=== PATIENT | male | born 1985 | race Caucasian/White ===

== ENCOUNTER 2017-05-27 15:58 | Emergency (ER) | END 2017-05-27 17:05 | disposition home or self-care (01) ==

== ENCOUNTER 2017-12-20 07:50 | Emergency (ER) | END 2017-12-20 09:16 | disposition home or self-care (01) ==

== ENCOUNTER 2017-12-22 11:51 | Emergency (ER) | END 2017-12-22 14:12 | disposition home or self-care (01) ==

== ENCOUNTER → 2018-07-12 | Outpatient (CLI) | payer BC ==
[~2018-07-12] MED LIST: CALC300T4 PO; FAMO-96 PO; ONDA4TAB14 PO; PANT40TA3 PO
== END | disposition home or self-care (01) ==
LOC: LAB 08:11
PROVIDERS: ATTEND Internal Medicine
DX: Z01.84 Encounter for antibody response examination (principal); D64.9 Anemia, unspecified
CPT/HCPCS: 80053; 85025; 86480; 86706; 86735; 86762; 86765; 86787

== ENCOUNTER → 2018-08-22 | Outpatient (CLI) | payer BC | END | disposition home or self-care (01) | LOC: LAB 16:44 | PROVIDERS: ATTEND Internal Medicine | DX: N39.0 Urinary tract infection, site not specified (principal); D64.9 Anemia, unspecified | CPT/HCPCS: 81001; 85025; 86592 ==

== ENCOUNTER → 2018-08-25 | Outpatient (CLI) | payer BC | END | disposition home or self-care (01) | LOC: LAB 16:00 | PROVIDERS: ATTEND Internal Medicine | DX: N13.9 Obstructive and reflux uropathy, unspecified (principal); N20.0 Calculus of kidney | CPT/HCPCS: 76775 ==

== ENCOUNTER → 2018-08-26 | Outpatient (CLI) | payer BC | END | disposition home or self-care (01) | LOC: LAB 13:06 | PROVIDERS: ATTEND Internal Medicine | DX: N39.0 Urinary tract infection, site not specified (principal); R31.9 Hematuria, unspecified | CPT/HCPCS: 81001; 87086 ==

== ENCOUNTER → 2018-09-15 | Outpatient (CLI) | payer BC | END | disposition home or self-care (01) | LOC: LAB 18:15 | PROVIDERS: ATTEND Internal Medicine | DX: Z01.84 Encounter for antibody response examination (principal); E86.0 Dehydration | CPT/HCPCS: 80048 ==